=== PATIENT | male | born 1980 | race Caucasian/White ===

== ENCOUNTER 2022-05-01 18:49 | Emergency (ER) | payer MEDICAID, SELFPAY ==
[2022-05-01 19:00] VITALS: PULSE 97; RESP 16; TEMP 37.1; O2SAT 95
--- NOTE | 2022-05-01 19:59 | W.ED.GENADLT ---
HPI - General Adult General: Chief complaint: General Medical Stated complaint: insomnia, can't eat Time Seen by Provider: 05/01/22 19:24 Source: patient and family (Father) Mode of arrival: ambulatory Limitations: no limitations History of Present Illness: This patient presents to the emergency department because of inability to fall asleep for the last at least 3 days. He is accompanied by his father who collaborates the story. Patient states he is under no certain of why he cannot fall asleep but he seems to not be able to fall asleep for the last 3 nights and despite lack of sleep does not seem to be particularly tired during the day following. He states he does drink Dr. Pepper but otherwise denies any caffeinated beverages. He denies any street drugs, energy drinks or other stimulants. He rarely drinks alcohol. No street drugs. He states he has had occasional episodes in the past when he was working varying shifts but he is not currently employed so that is not a factor. He denies any history of thyroid dysfunction. He denies any periods of radha or other mental illness in the past. His father reports that and collaborates that he has not had a history of mental illness. He states that he has observed his son pacing the floor for the last couple of nights in addition seems to be having some loosening of associations since he has not slept. He states again to reiterate that this is not his usual mental state. No recent illness to include fever cough cold nausea vomiting diarrhea etc. Father reports that he is fine and there is no one else living in the home currently. Patient specifically denies any thoughts of self-harm, visual or auditory hallucinations etc. Associated symptoms: Deny chest pain, dyspnea, headache(s), nausea, rash, palpitations, syncope or vomiting Review of Systems Const: Denies: fever(s), chills or change in appetite Eyes: Denies: change in vision ENMT: Denies: throat pain, odynophagia, nasal discharge or nasal obstruction Card: Denies: chest pain, palpitations, irregular heart rhythm, lightheadedness, syncope or pre-syncope Resp: Reports: non-productive cough; Denies: dyspnea or productive cough GI: Denies: abdominal pain, nausea, vomiting or diarrhea : Denies: difficulty urinating, dysuria or urinary frequency Musc: Denies: neck pain, back pain, extremity pain or extremity swelling Skin/Breast: Denies: rash Neuro: Denies: headache(s), numbness in extremities, weakness in extremities, dizziness or seizure-like activity Psych: Reports: sleeping less; Denies: anxiety, depression, mood swings, panic attacks, visual hallucinations, auditory hallucinations, suicidal ideation or homicidal ideation Endo: Denies: polydipsia, cold intolerance or excessive sweating Physical Exam Narrative: EXAM NARRATIVE: The patient appears to be in no acute distress. He makes good eye contact and answers questions appropriately although he does take a beat before he formulate an answer but they appear to be well thought out and accurate. He is cooperative. Const: COMMON NORMALS: no acute distress, patient oriented x3, healthy appearing and alert GENERAL APPEARANCE: cooperative and comfortable NUTRITIONAL APPEARANCE: overweight HENMT: COMMON NORMALS: normocephalic, atraumatic, Normal nasal mucous membranes and turbinates present and moist oral mucous membranes HEAD & SCALP: normocephalic and atraumatic NOSE: Normal nasal mucous membranes and turbinates present Eye: COMMON NORMALS: Equal, round and reactive pupils present, EOMs intact bilaterally and conjunctivae normal CONJUNCTIVA: Yes conjunctivae normal PUPIL: Yes Equal, round and reactive pupils present Neck/C-Spine: COMMON NORMALS: full ROM and no lymphadenopathy Chest: COMMONS NORMALS: normal inspection of the chest Resp: COMMON NORMALS: normal respiratory effort, No retractions, No use of accessory muscles and clear to auscultation bilaterally EFFORT & INSPECTION: Yes able to speak in complete sentences AUSCULTATION: clear to auscultation bilaterally Cardio: COMMON NORMALS: regular rate, regular rhythm, No murmurs present (Cardio) and Peripheral pulses 2+ throughout RATE: regular rate RHYTHM: regular rhythm PERIPHERAL PULSES: Peripheral pulses 2+ throughout GI: COMMON NORMALS: Normal to inspection, nondistended, normoactive bowel sounds present and Soft to palpation PALPATION: Yes Soft to palpation : COMMON NORMALS: Yes no CVA tenderness BLADDER/KIDNEY EXAM: Yes no CVA tenderness Back/Pelvis: COMMON NORMALS: no CVA tenderness, thoracic and lumbar spine normal to inspection, no thoracic nor lumbar tenderness and thoraco-lumbar ROM normal Extremity: COMMON NORMALS: normal to inspection, full ROM and no pedal edema Neuro: COMMON NORMALS: patient oriented x3, moves all extremities, no focal motor deficits, no sensory deficits noted and gait normal SENSORIUM/ORIENTATION: Yes alert Psych: COMMON NORMALS: mental status grossly normal, cooperative, speech normal, activity/motor behavior normal, denies hallucinations, denies homicidal ideation and denies suicidal ideation SPEECH: Yes normal speech, Yes slow and Yes soft THOUGHT CONTENT: Yes Normal thought content present Skin: COMMON NORMALS: no rashes or lesions noted and turgor normal GENERAL SKIN EXAM: no rashes or lesions noted and turgor normal Course Vital Signs: Vital signs: Vital Signs Temperature 98.8 F 05/01/22 19:00 Pulse Rate 97 05/01/22 19:00 Respiratory Rate 16 05/01/22 19:00 Pulse Oximetry 95 05/01/22 19:00 Oxygen Delivery Me thod 05/01/22 19:00 [facility] - General Adult Medical Decision Making This patient presents to the emergency department company by his father recent bout of sleep deprivation of uncertain etiology. No prior history of mental illness, street drug use, other potential risk factors for insomnia. Is a clinical picture and clinical exam does not suggest acute radha or other central mental illness at this time. Certainly does not have any evidence this evening of loosening of associations or psychosis. Some mild caffeine ingestion but otherwise no other potential trigger. His father who is with him collaborates all his history and states that he has not had any concerns about mental illness ever and certainly does not harbor that at this time. After discussion with the patient in detail with the father present we have decided to give him a brief trial of a short acting sleep aid to reset his sleep cycle. We further discussed that should despite sleep he not feel back to his normal state or have other concerning thoughts actions etc. he should return to this or the nearest emergency department. Both he and his father voiced understanding and agreed. Discharge Plan Discharge Patient Disposition: Home Clinical Impression: Insomnia Condition: Stable Prescriptions: New Ambien CR 6.25 mg tablet,ext release multiphase 6.25 mg PO BEDTIME Qty: 7 0RF Discharge Orders: Discharge ED (Routine); Ordered 05/01/22 Ordered By: Vance Anthony Referrals: Jordon Schofield MD [Family Provider] - 7-10 days Discharge Diet: Usual diet Discharge Activity: Increase activity as tolerated Patient Instructions: Insomnia (ED), Opioid Safety, Pain Management Activity Restrictions/Additional Instructions: As we discussed we have provided a prescription of a short-term medication to help induce your sleep until your sleep cycle is reset. Avoid using caffeinated beverages after dinnertime, do not use alcohol to induce sleep as it disrupts sleep as well. If despite the medication you develop worsening symptoms, hallucinations, other disturbing thoughts return to this or the nearest emergency department. Coding Level of Care Code ED [employer] for Emma Raphael
[2022-05-01 20:05] VITALS: BP 149/115; PULSE 91; RESP 16; O2SAT 98
--- NOTE | 2022-05-01 20:28 | PC.NURSE ---
Pt given Ambien 5mg to take home per MD order.
== END 2022-05-01 20:26 | disposition home or self-care (01) ==
PROVIDERS: Emergency Provider Emergency Medicine; Family Provider Family Medicine
DX: G47.00 Insomnia, unspecified (principal)
CPT/HCPCS: 99283

== ENCOUNTER 2022-05-02 19:54 | Inpatient (IN) | payer MEDICAID, SELFPAY ==
[2022-05-02 20:08] VITALS: RESP 18
[2022-05-02 20:14] VITALS: BP 166/115; PULSE 96; O2SAT 98
[2022-05-02 21:42] LABS: Add Urine Microscopic? NO; Charge for UA Resulting for Rev
[2022-05-02 21:43] LABS: Basophils % 0.3 %; Eosinophils # 0.3 10^3/uL (0.0-0.8); Hematocrit 52.7 % (42.0-52.0); Hemoglobin 18.2 g/dL (11.7-16.6); Lymphocytes # 2.8 10^3/uL (0.8-4.8); Mean Corpuscular HGB Conc 34.5 g/dL (30.0-36.0); Mean Corpuscular Hemoglobin 32.2 pg (28.0-34.0); Mean Corpuscular Volume 93.3 fl (80-94); Mean Platelet Volume 10.1 fL (7.4-10.4); Monocytes # 1.2 10^3/uL (0.2-0.9); Neutrophils # 8.94 10^3/uL (1.8-7.7); Neutrophils % 67.5 %; Nucleated Red Blood Cells % 0 %; Platelet Count 311 10^3/cmm (130-400); Red Blood Count 5.65 10^6/uL (4.1-5.3); Red Cell Distribution Width 11.9 % (12.1-15.1); White Blood Count 13.3 10^3/uL (4.0-10.0)
[2022-05-02 21:46] LABS: Bilirubin Urine Neg (Negative); Blood Urine Neg (Negative); Glucose Urine UA Norm (Normal); Ketones Urine 1+ (Negative); Leukocyte Esterase Urine Negative (Negative); Nitrate Urine Negative (Negative); Protein Urine Neg (Negative); Urine Appearance Clear (CLEAR); Urine Color Yellow (Yellow); Urobilinogen Urine Neg (Negative); pH Urine 5 (5-7)
[2022-05-02 21:54] LABS: Amphetamines Screen Urine Negative (Negative); Barbiturates Screen Urine Negative (Negative); Benzodiazepines Screen Urine Negative (Negative); Cocaine Screen Urine Negative (Negative); Opiate Screen Urine Negative (Negative); PCP Screen Urine Negative (Negative); THC Screen Urine Negative (Negative)
--- NOTE | 2022-05-02 21:57 | W.ED.PSYCHS ---
HPI - Psych General: Chief Complaint: Psychiatric Symptoms Stated Complaint: insomnia, can't eat Time Seen by Provider: 05/02/22 20:18 Source: patient and family History of Present Illness: 42-year-old male who was here last night. Evidently, this patient has not slept for the last 4 nights. His father is with him, and notes that the patient has been somewhat paranoid at home. He was given medication for insomnia last night, but would not take it. The patient reports visual hallucinations. He paces the floor at night, and leaves the home at different hours of the night walking. Father reports one other instance of this, which required a neuropsychiatric unit stay for 3 to 4 days in his past. MD complaint: altered mental status and other Onset (ago): day(s) Duration: constant History of same: Yes Relieving factors: none Exacerbating factors: none Associated symptoms: Reports auditory hallucinations, visual hallucinations, delusions and depression; Deny homicidal ideation or suicidal ideation Review of Systems Const: Denies: fever(s) ENMT: Denies: throat pain Card: Denies: chest pain or palpitations Resp: Denies: dyspnea, productive cough or non-productive cough GI: Denies: abdominal pain, vomiting or diarrhea Psych: Reports: depression, visual hallucinations and auditory hallucinations; Denies: suicidal ideation or homicidal ideation Physical Exam Const: COMMON NORMALS: alert GENERAL APPEARANCE: cooperative, anxious and appears older than stated age HENMT: COMMON NORMALS: normocephalic, atraumatic and Normal external nose present HEAD & SCALP: normocephalic and atraumatic FACE & SINUS: normal facial exam and face symmetric NOSE: Normal external nose present and Normal nares present Eye: COMMON NORMALS: Equal, round and reactive pupils present and EOMs intact bilaterally PUPIL: Yes Equal, round and reactive pupils present Neck/C-Spine: COMMON NORMALS: full ROM GENERAL: Yes trachea midline Chest: CHEST: Yes Symmetrical chest wall rise Resp: COMMON NORMALS: normal respiratory effort, No use of accessory muscles and clear to auscultation bilaterally AUSCULTATION: clear to auscultation bilaterally Cardio: COMMON NORMALS: regular rate and regular rhythm RATE: regular rate RHYTHM: regular rhythm GI: COMMON NORMALS: Normal to inspection, nondistended, normoactive bowel sounds present, Soft to palpation and non-tender PALPATION: Yes Soft to palpation Extremity: COMMON NORMALS: no pedal edema Neuro: SENSORIUM/ORIENTATION: Yes alert CRANIAL NERVES: Yes CN normal except as noted SPEECH: speech normal GAIT: Yes Normal gait present Psych: APPEARANCE: Yes unkempt ATTITUDE: Yes paranoid and Yes bizarre ACTIVITY/MOTOR BEHAVIOR: Yes psychomotor agitation and Yes fidgeting SPEECH: Yes soft MOOD & AFFECT: Yes depressed mood and Yes fearful THOUGHT PROCESS: Circumstantial thought process present and disorganized THOUGHT CONTENT: No Suicidality present, No Homicidality present, Yes delusions and Yes Hallucination(s) present ATTENTION/CONCENTRATION: Yes attention grossly impaired and Yes concentration grossly impaired MEMORY/COGNITION: Yes memory grossly intact and Yes cognition grossly intact INSIGHT: Limited insight present (Psych) JUDGEMENT: Limited judgement present (Psych) Skin: COMMON NORMALS: no rashes or lesions noted GENERAL SKIN EXAM: no rashes or lesions noted Face to Face: Restrn/Seclusion Events leading up to initiation: Demonstrating self-destructive behavior (cutting, hitting davis etc.) Evaluation of patient's immediate situation: Alert and oriented, No signs of psychological distress and Signs of psychological distress Patient reaction since intervention applied: De-escalation/no displays of violent/destructive behavior Recent labs reviewed: Yes Patient's current medical/behavioral condition: No new concerns since last ROS Need for restraint or seclusion is: Continued Attending notified: Attending completed assessment (retraint is chemical not physical. Pt medicated for aggitation) Course Vital Signs: Vital signs: Vital Signs Pulse Rate 96 05/02/22 20:14 Respiratory Rate 18 05/02/22 20:08 Blood Pressure 166/115 05/02/22 20:14 Pulse Oximetry 98 05/02/22 20:14 Oxygen Delivery Me thod 05/02/22 20:14 MDM - Psych Medical Decision Making White blood cell count mildly elevated at 13 with a normal differential. Hemoglobin is elevated at 18, polycythemia likely related to smoking. Urine drug screen is negative. Alcohol is negative. He has a mild elevation in bilirubin of 1.9. Laboratory otherwise not remarkable. This patient became somewhat agitated in his room. He kept trying to leave. He exhibits paranoid and bizarre behavior, will not take his medication at home. His father is quite concerned for his safety, as am I. At this point, he does not appear to have insight. He was offered medication, for agitation, and at first obliged, but then refused. At one point, he was pushing on the ER department doors trying to leave. His father is written affidavit over his concern for the patient's safety as well as his safety at home. I have done the same. He will be placed on a 96-hour hold. I spoke with her psychiatrist. He agrees to the admission. He is medically stable Lab Data 05/02/22 21:30 05/02/22 21: Laboratory Results WBC 13.3 10^3/uL (4.0-10.0) H 05/02/22 21: RBC 5.65 10^6/uL (4.1-5.3) H 05/02/22 21: Hgb 18.2 g/dL (11.7-16.6) H 05/02/22 21: Hct 52.7 % (42.0-52.0) H 05/02/22 21: MCV 93.3 fl (80-94) 05/02/22 21: MCH 32.2 pg (28.0-34.0) 05/02/22 21: MCHC 34.5 g/dL (30.0-36.0) 05/02/22 21: RDW 11.9 % (12.1-15.1) L 05/02/22 21: Plt Count 311 10^3/cmm (130-400) 05/02/22 21: MPV 10.1 fL (7.4-10.4) 05/02/22 21: Neut % (Auto) 67.5 % 05/02/22 21: Lymph % (Auto) 21.0 % 05/02/22 21: [place] % (Auto) 9.0 % 05/02/22 21: Eos % (Auto) 2.0 % 05/02/22 21: Baso % (Auto) 0.3 % 05/02/22: Neut # (Auto) 8.94 10^3/uL (1.8-7.7) H 05/02/22 21: Lymph # (Auto) 2.8 10^3/uL (0.8-4.8) 05/02/22 21:30 [place] # (Auto) 1.2 10^3/uL (0.2-0.9) H 05/02/22 21:30 Eos # (Auto) 0.3 10^3/uL (0.0-0.8) 05/02/22 21:30 Baso # (Auto) 0.0 10^3/uL (0.0-0.1) 05/02/22 21:30 Nucleated RBC % (auto) 0 % 05/02/22 21: Nucleated RBCs # 0.0 /100WBC 05/02/22 21:30 Sodium 135 mmol/L (136-145) L 05/02/22 21:30 Potassium 3.6 mmol/L (3.5-5.1) 05/02/22: Chloride 94 mmol/L (98-107) L 05/02/22 21: Carbon Dioxide 26 mmol/L (22-29) 05/02/22 21: Anion Gap 18.6 (5-19) 05/02/22: BUN 6 mg/dL (6-20) 05/02/22 21:30 Creatinine 0.8 mg/dL (0.7-1.2) 05/02/22 21:30 GFR Calculation 106.5 mL/min (90-130) 05/02/22 21: Glucose 108 mg/dL (65-115) 05/02/22 21: Calculated Osmolality 278 mOsm/kg (285-295) L 05/02/22: Calcium 10.0 mg/dL (8.5-10.5) 05/02/22: Total Bilirubin 1.9 mg/dL (0.15-1.2) H 05/02/22 21:30 AST 49 U/L (0-40) H 05/02/22 21:30 ALT 50 U/L (0-41) H 05/02/22 21:30 Alkaline Phosphatase 60 U/L (40-130) 05/02/22 21: Total Protein 8.1 g/dL (6.6-8.7) 05/02/22 21: Albumin 5.0 g/dL (3.5-5.2) 05/02/22: Globulin 3.1 g/dL (1.3-4.6) 05/02/22 21:30 TSH 1.28 uIU/mL (0.27-4.20) 05/02/22 21:30 Urine Color Yellow (Yellow) 05/02/22 21: Urine Appearance Clear (CLEAR) 05/02/22 21: Urine pH 5 (5-7) 05/02/22 21: Ur Specific [place] 1.010 (1.005-1.030) 05/02/22 21: Urine Protein Neg (Negative) 05/02/22 21: Urine Glucose (UA) Norm (Normal) 05/02/22 21: Urine Ketones 1+ (Negative) H 05/02/22: Urine Blood Neg (Negative) 05/02/22: Urine Nitrate Negative (Negative) 05/02/22: Urine Bilirubin Neg (Negative) 05/02/22 21: Urine Urobilinogen Neg mg/dL (Negative) 05/02/22: Ur Leukocyte Esterase Negative (Negative) 05/02/22: Salicylates < 0.3 mg/dL (3-10) L 05/02/22 21:30 Urine Opiates Screen Negative ng/mL (Negative) 05/02/22: Acetaminophen < 5.0 ug/mL (10-30) L 05/02/22 21:30 Ur Barbiturates Screen Negative ng/mL (Negative) 05/02/22 21: Ur Phencyclidine Scrn Negative ng/mL (Negative) 05/02/22 21: Ur Amphetamines Screen Negative ng/mL (Negative) 05/02/22: U Benzodiazepines Scrn Negative ng/mL (Negative) 05/02/22 21: Urine Cocaine Screen Negative ng/mL (Negative) 05/02/22: U Marijuana (THC) Screen Negative ng/mL (Negative) 05/02/22: Ethyl Alcohol < 10 mg/dL (0-10) 05/02/22 21: Discharge Plan Discharge Patient Disposition: Admitted As Inpatient Admit Provider: Juan Eaton Clinical Impression: Acute psychosis Condition: Stable Coding Level of Care Code ED Endoscopy Registered Nurse for Emma Raphael
[2022-05-02 22:11] LABS: Alanine Aminotransferase 50 U/L (0-41); Alkaline Phosphatase 60 U/L (40-130); Anion Gap 18.6 (5-19); Aspartate Amino Transferase 49 U/L (0-40); Blood Urea Nitrogen 6 mg/dL (6-20); Carbon Dioxide 26 mmol/L (22-29); Chloride 94 mmol/L (98-107); Globulin 3.1 g/dL (1.3-4.6); Glomerular Filtration Rate 106.5 mL/min (90-130); Glucose 108 mg/dL (65-115); Osmolality Calculated 278 mOsm/kg (285-295); Potassium 3.6 mmol/L (3.5-5.1); Sodium 135 mmol/L (136-145); Thyroid Stimulating Hormone 1.28 uIU/mL (0.27-4.20); Total Bilirubin 1.9 mg/dL (0.15-1.2); Total Protein 8.1 g/dL (6.6-8.7)
[2022-05-02 22:20] LABS: Acetaminophen < 5.0 ug/mL (10-30); Alcohol Level < 10 mg/dL (0-10); Salicylate < 0.3 mg/dL (3-10)
--- NOTE | 2022-05-02 23:15 | PC.NURSE ---
client service supervisor, RN, and security at bedside for 96 hour hold paperwork and read rights to patient.
[2022-05-02] MEDS: ziprasidone 20 mg/mL SDV IM (23:26)
[2022-05-02] MEDS: LORazepam 2 mg/mL INJ 1 mL IM (23:26)
[2022-05-03 00:23] VITALS: BP 127/86; PULSE 121; RESP 18; TEMP 36.7; O2SAT 97
--- NOTE | 2022-05-03 00:58 | PC.ADMIT ---
[address] Admission Note: The patient,Tobin Morley,42 y/o, was given written information regarding hospital policies, unit procedures and contact persons. Patient's smoking status: . Vital Signs - 8 hr 05/02/22 20:08 05/02/22 20:14 05/03/22 00:23 Temperature 98.1 F Pulse Rate 96 121 H Respiratory Rate 18 18 Blood Pressure 166/115 127/86 Pulse Oximetry 98 97 Oxygen Delivery Method Room Air Room Air Room Air 05/03/22 00:48 Temperature Pulse Rate Respiratory Rate Blood Pressure Pulse Oximetry Oxygen Delivery Method Room Air PT ADMITTED FROM ER AT 0020 ON 05/03/2022. PT IS SEDATED AND IT IS DIFFICULT TO COMPLETE ASSESSMENT. PT DENIES SI/HI AND AVH AT THIS TIME. RELIEF DOCKING MASTER DID REPORT THAT PT HAS NOT SLEPT IN 4-5 DAYS AND WAS SEEN IN THE ER YESTERDAY FOR INSOMNIA. PT WAS GIVEN AMBIEN CR 6.25MG TO TAKE AT HS. PT PRESENTED IN ER TODAY STATING HE COULD STILL NOT SLEEP AND REPORTED HE DID NOT TAKE HIS AMBIEN DUE TO BEING PARANOID. RELIEF DOCKING MASTER REPORTED THAT PT WOULD WALK IN AND OUT OF ROOM STATING HE DID NOT KNOW WHAT WAS GOING ON. PT WAS PLACED ON A 96 HOUR HOLD THEN GIVEN ATIVAN PO, ATIVAN IM AND GEODON 20 MG IM WHILE IN THE THE ER. PT WAS BROUGHT TO THE NPU VIA WHEELCHAIR AND SECURITY. PT WAS ABLE TO ANSWER SIMPLE YES/NO QUESTIONS BUT THE INTERVIEW AND ASSESSMENT PROGRESSED PT BEGAN TO SLUMP OVER AND WAS OBVIOUSLY SLEEPING. PT SPEECH WAS MUMBLED AND AT TIMES UNCOMPREHENSABLE. PT WAS DRESSED OUT INTO SCRUBS AND SKIN ASSESSMENT COMPLETED. SKIN IS CLEAR AT THIS TIME. PT DID HAVE DIFFICULTY AMBULATING AND WAS ASSISTED TO BED WITH 2 STAFF ASSIST. PT WAS OFFERED SOMETHING TO EAT AND DRINK BUT REFUSED DUE TO BEING SEDATED. PT CURRENTLY RESTING IN BED WITH EYES CLOSED. ALL QUESTIONS ANSWERED AND SUPPORT VOICED.
[2022-05-03 03:09] VITALS: BMI 25.8
[2022-05-03] MEDS: guaiFENesin-dextromethorphan UDC 10 mL PO (04:39)
[2022-05-03 04:51] VITALS: BMI 25.8
[2022-05-03] MEDS: nicotine 2 mg Gum BUCCAL ×4 (05:05→13:52)
[2022-05-03] MEDS: nicotine 4 mg lozenge MUCOUS MEM (10:05)
[2022-05-03] MEDS: OLANZapine 5 mg ODT PO ×2 (13:13→21:45)
--- NOTE | 2022-05-03 13:27 | P.NPUHP_ITS ---
Providers/Chief Complaint Admitting Physician: Juan Eaton MD Chief Complaint: insomnia, can't eat HPI NPU History of Present Illness Tobin Morley is a 42 year old male who had presented to the emergency department last night after the patient's father had stated that the patient had been paranoid and had not slept at all for the past 4 nights. The patient's father had reported that the patient had been pacing the floor all night and had been leaving the house at night without any direction. The patient was admitted to the neuropsychiatric unit for further evaluation and treatment. The patient was unable to elaborate in any detail regarding why he was hospitalized. He reports that he is unsure where he is at this time and states that he does not remember why he was hospitalized. The patient reported simply that he had not been sleeping well. He had reported not hearing voices or seeing things at this time. He denied having depressed mood currently. He had minimized the use of illicit drugs or any alcohol recently. The patient had repeatedly stated that he had been without his contact lenses and was requesting that he be given contact lenses but appeared confused when asked if there was any family that could aid in his vision problems at this time. He was unable to elaborate regarding any pertinent information. Inpatient hospitalizations: Previous records had indicated 2 hospitalizations at [facility] for acute psychosis and 2010. Outpatient psychiatric history: Unknown at this time although patient had previously been diagnosed with both major depressive disorder with psychotic features as well as psychotic disorder NOS. Current medications: Ambien 6.25 mg at night Medical history: none reported, hx of GERD per previous record Surgical History: unknown Drug and Alcohol History: Per previous records from 2010, there is a history of alcohol abuse and reports of illicit drug use in the past. Legal history: Unknown Allergies: No known drug allergies Social history: Previous records report that the patient was born in [facility] to his biological parents. They had apparently when he was age 17. There reports that he had graduated from high school and reports that he has 1 child per previous records. He he was unable to corroborate any information regarding where he lived and who he lived with currently. He was unable to provide detail regarding his employment stating that he did a little bit of this and a little bit of that. Previous records had reported that the patient had stated having depression since the age of 15. There was no clear evidence of any learning problems per previous records. Family psychiatric history: History of depression noted on the maternal side of the family. Meds NPU Home Medications Medication Instructions Recorded Confirmed Last Taken Type zolpidem 6.25 mg tablet,extended 6.25 mg PO BEDTIME #7 tabs 05/01/22 05/03/22 Unknown Rx release,multiphase (Ambien CR) Allergies Allergy/AdvReac Type Severity Reaction Status Date / Time No Known Allergies Allergy Verified 05/03/22 01:17 Mental Status Exam MSE Comments: Patient was casually dressed white male who appeared to be pacing the hallway and somewhat intrusive as he had made attempts to enter into other patient's room initially and required redirection. He was awake and alert and did not appear excessively tired. His speech was regular in regards to rate with normal volume but some evidence of increased latency in speech when asked questions. His mood was described as okay. His affect appeared blunted and mood incongruent. His thought process appeared to perseverate regarding his need to be able to see but was not on linear as he repeatedly stated I do not know when asked details regarding his current existence. He appeared quite paranoid during the examination and at times did appear to be responding to internal stimuli although he minimized any auditory or visual hallucinations. He was alert and oriented to his name, the month, the year, the day of the week, but not purpose. He was unable to recall who the president was by name. His insight was impaired. His judgment is poor. His impulse control appeared poor. Vitals/I&O/Wt Last Vital Signs Temp 98.1 F 05/03/22 00:23 Pulse 121 H 05/03/22 00:23 Resp 18 05/03/22 00:23 BP 127/86 05/03/22 00:23 Pulse Ox 97 05/03/22 00:23 O2 Del Method 05/03/22 00:48 Weight last 48 hrs Weight 79.379 kg Weight 79.379 kg Data NPU 05/02/22 21:30 05/02/22 21:30 A&P Assessment and plan (1) Acute psychosis: Plan Patient is a 42-year-old white male with a previous history of a unspecified psychotic episode who again presents with increased confusion and decreased need for sleep. He will continue to require higher inpatient hospitalization involuntarily at this time. #1. Restart patient's medications. #2. We will attempt to gather collateral information. Patient currently is refusing any medications although he would like for it from an antipsychotic at this time. #3. Engage patient in individual milieu and group therapy. #4. Therapeutic observation 15-minute checks while on the unit. Involuntary Hold Information 96 Hour Hold: 96 Hour Involuntary Admission: Yes 96 Hour Hold Ending Date: 05/07/22 96 Hour Hold Ending Time: 22:43 Attestations NPU Medical Necessity Statement*: Patient will continue to require acute hospitalization on the neuropsychiatric unit which will be expected to exceed at least 2 midnights. The duration of his hospitalization will likely be 5 to 10 days. Coding Level of Care Code Acute Code for [facility] Fwd Diagnoses Acute psychosis F23
[2022-05-03 14:00] VITALS: BP 144/104; PULSE 87; RESP 17; TEMP 36.6; O2SAT 96
--- NOTE | 2022-05-03 15:21 | PC.NURSE ---
ripped off armband, refusing to wear armband currently
[2022-05-03] MEDS: haloperidol inj 5 mg/mL INJ 1 mL IM (16:22)
[2022-05-03] MEDS: diphenhydrAMINE 50 mg/mL SDV 1mL IM (16:22)
[2022-05-03] MEDS: LORazepam 2 mg/mL INJ 1 mL IM (16:22)
--- NOTE | 2022-05-03 16:24 | PC.NURSE ---
upon staff rounding, staff observed patient to be laying in his roommates bed, laying back to back with him in his bed. staff quickly intervened, asking patient to remove himself from the bed of his roommate, patient argumentative, saying to staff I asked him if I could lay back to back with him and he said that was okay staff educated patient of inappropriate behaviors, patient continues to be irritable with staff saying he will daphney us patient continued to lay in the bed of his roommate, so staff got the roommate (Gisella Elliott) to get up from the bed & go into the hallway. security called to unit, PRN medications given IM to patient Primo Morley, roommate moved to another room, verbal order given to close room, alerted physician, greenhouse or nursery transplanter, NPU manger as well about this incident
[2022-05-03] MEDS: zolpidem 5 mg Tablet 10 MG PO (21:42)
[2022-05-04] MEDS: nicotine 2 mg Gum BUCCAL ×3 (03:51→12:54)
[2022-05-04 04:41] VITALS: BP 141/90; PULSE 101; RESP 18; TEMP 36.4; O2SAT 95
--- NOTE | 2022-05-04 06:12 | PC.NURSE ---
Patient asked about glasses / contacts 5-6 times throughout the shift. Each time it was explained to him that we are going to call his father to see if he could bring contacts or glasses to the unit but not until 07:00 or so. He also asked why he was here 6-7 times each time the reason and how he got here was explained to him.
[2022-05-04] MEDS: nicotine 21 mg Patch 1 PATCH TRANSDERMA (08:20)
[2022-05-04 14:00] VITALS: BP 133/88; PULSE 105; RESP 18; TEMP 36.9; O2SAT 94
--- NOTE | 2022-05-04 15:49 | W.PM.NPUPNS ---
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 The patient had refused any as needed medications at this time. He had reported having some improved sleep after receiving the Zyprexa sublingual last night. He had continued to appear at times confused and anxious on the unit as he had expressed his distrust with others. He had minimized any ideas of thought insertion or thought broadcasting. He had reported that his father had apparently brought in his eyeglasses although he had reported that he had not received a visit from them. He remained somewhat unsure in regards to his current events that had led to him being hospitalized. He was initially unable to describe where he was and what kind of place or facility he was at at this time. The patient had required as needed medications last night for agitation including Haldol and olanzapine. Mental Status Exam MSE Comments: Patient was casually dressed white male who appeared to be pacing the hallway while asking many questions and appearing confused despite receiving answers to his questions.. He was awake and alert and did not appear excessively tired. His speech was regular in regards to rate with normal volume but some evidence of increased latency in speech when asked questions. His mood was described as okay. His affect appeared blunted and mood incongruent. His thought process appeared linear but superficial. He appeared quite paranoid during the examination and at times did appear to be responding to internal stimuli although he minimized any auditory or visual hallucinations. There was clear evidence of paranoia. He was alert and oriented to his name, the month, the year, the day of the week, but not purpose. His insight was impaired. His judgment is poor. His impulse control appeared poor. Vitals/I&O/Wt Last Vital Signs Temp 98.4 F 05/04/22 14:00 Pulse 105 H 05/04/22 14:00 Resp 18 05/04/22 14:00 BP 133/88 05/04/22 14:00 Pulse Ox 94 05/04/22 14:00 O2 Del Method 05/03/22 00:48 Weight last 48 hrs Weight 79.379 kg Weight 79.379 kg Data NPU 05/02/22 21:30 05/02/22 21:30 A&P Assessment and plan (1) Acute psychosis: Plan Patient is a 42-year-old white male with a previous history of a unspecified psychotic episode who again presents with increased confusion and decreased need for sleep. He will continue to require higher inpatient hospitalization involuntarily at this time. #1. Trial of Zyprexa Zydus 5mg at night tonight to target psychosis. #2. We will attempt to gather collateral information. #3. Engage patient in individual milieu and group therapy. #4. Therapeutic observation 15-minute checks while on the unit. Involuntary Hold Information 96 Hour Hold: 96 Hour Involuntary Admission: Yes 96 Hour Hold Ending Date: 05/07/22 96 Hour Hold Ending Time: 22:43 Attestations NPU Medical Necessity Statement*: Patient will continue to require acute hospitalization on the neuropsychiatric unit which will be expected to exceed at least 2 midnights. The duration of his hospitalization will likely be 5 to 10 days. Coding Level of Care Code Acute Code for [facility] Diagnoses Acute psychosis F23
[2022-05-04 19:50] VITALS: BP 132/94; PULSE 113; RESP 18; TEMP 37.2; O2SAT 94
[2022-05-04] MEDS: OLANZapine 5 mg ODT PO (20:31)
[2022-05-04] MEDS: pantoprazole DR 40 mg Tablet PO (22:02)
[2022-05-05] MEDS: nicotine 4 mg lozenge MUCOUS MEM ×4 (04:02→19:24)
[2022-05-05 06:00] VITALS: BP 141/97; PULSE 73; RESP 18; TEMP 37; O2SAT 95
[2022-05-05] MEDS: nicotine 2 mg Gum BUCCAL ×2 (07:55→18:05)
[2022-05-05] MEDS: pantoprazole DR 40 mg Tablet PO (07:55)
[2022-05-05 08:39] VITALS: BP 134/90; PULSE 75; RESP 18; TEMP 36.8; O2SAT 93
--- NOTE | 2022-05-05 15:19 | W.PM.NPUPNS ---
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 The patient had continued to appear confused on the mill you asking how many days he had been here in the hospital and where he was. He did report improved sleep. He had reported that he had not had visitors yet from his family. He had reported that he had not been working and had been living at home with his father but struggled with providing any further details. The patient had been eating and consuming fluids on the unit without any complication. He did not appear aggressive and did not require any as needed medications thus far today for agitation or anxiety. Mental Status Exam MSE Comments: Patient was casually dressed white male who was pacing the hallway. He continued to appear confused about the details and purpose of his stay here though he recognized the need for him to be here. He was alert and oriented to person place and time. His thought process was linear but superficial. He has remote memory appeared poor although his recent memory regarding his past few days remained poor. He appeared less guarded today. His speech at times appeared to show some increase in latency. There was no clear evidence of delusional thinking. He did appear at times distracted from his thoughts although he had denied any auditory or visual loose [place]. His insight is poor. His impulse control remains guarded. His judgment at this time is poor. His attention span appeared variable. Vitals/I&O/Wt Last Vital Signs Temp 98.2 F 05/05/22 08:39 Pulse 75 05/05/22 08:39 Resp 18 05/05/22 08:39 BP 134/90 05/05/22 08:39 Pulse Ox 93 05/05/22 08:39 O2 Del Method 05/03/22 00:48 Data NPU 05/02/22 21:30 05/02/22 21:30 A&P Assessment and plan (1) Acute psychosis: Plan Patient is a 42-year-old white male with a previous history of a unspecified psychotic episode who again presents with increased confusion and decreased need for sleep. He will continue to require higher inpatient hospitalization involuntarily at this time. #1. Continue zyprexa 5mg at night to target psychosis. #2. We will attempt to gather collateral information. #3. Engage patient in individual milieu and group therapy. #4. Therapeutic observation 15-minute checks while on the unit. Involuntary Hold Information 96 Hour Hold: 96 Hour Involuntary Admission: Yes 96 Hour Hold Ending Date: 05/07/22 96 Hour Hold Ending Time: 22:43 Attestations NPU Medical Necessity Statement*: Patient will continue to require acute hospitalization on the neuropsychiatric unit with likely length of stay of 5-10 days. Coding Level of Care Code Acute Code for [facility] Fwd Diagnoses Acute psychosis F23
[2022-05-05 16:42] VITALS: BP 131/89; PULSE 77; RESP 18; TEMP 36.6; O2SAT 96
[2022-05-05 20:02] VITALS: BP 131/90; PULSE 81; RESP 18; TEMP 36.9; O2SAT 96
[2022-05-05] MEDS: OLANZapine 5 mg ODT PO (20:08)
--- NOTE | 2022-05-06 01:20 | PC.NURSE ---
Patient appears paranoid and confused. Asked staff why he is being held against his will. Explained to patient that he is on a 96hr hold for his safety. Patient stated I'm ok. I don't know how you can violate by rights and keep me here. Patient started to quote bible versus and stated God knows he does not need to be here. Attempted to explain again that his father and the ED doctor were concerned about his safety. Patient continued to be frustrated and kept stating how he was being held against his will. PRN medication offered for anxiety but patient refused. Offered to sit with patient to talk but patient refused.
[2022-05-06 06:00] VITALS: BP 146/81; PULSE 87; RESP 18; TEMP 36.4; O2SAT 96
[2022-05-06] MEDS: nicotine 21 mg Patch 1 PATCH TRANSDERMA (08:28)
[2022-05-06] MEDS: pantoprazole DR 40 mg Tablet PO (08:29)
[2022-05-06 14:00] VITALS: BP 152/95; PULSE 77; RESP 18; TEMP 37.2; O2SAT 94
--- NOTE | 2022-05-06 16:28 | W.PM.NPUPNS ---
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 The patient had reported improved sleep. He reported that he felt much better and had a good visit with his father. He had acknowledged that in the past he had had periods of time where he felt like his mind was confused and prevented him from being able to concentrate. He had endorsed in the past having some paranoia and being distracted by noise inside of his head. He had reported that he had attempted to push through this and reported that he had stopped medications that may have been helpful in the past and it had led to a decline in his functioning. He had been polite and redirectable in the milieu. He reports that he has not followed up with help after his discharge in the past from hospitals. He reported having support from his father who he lives with and reports that he would like to continue to take the medication upon his discharge. Staff notes the patient had slept throughout the night. He had not endorsed any past history of radha other than reporting that he had not slept for several days. He was still unable to remember the details of what had led him into the hospital. Mental Status Exam MSE Comments: Patient was casually dressed white male who was pacing the hallway. He continued to appear confused about the details of his hospitalization but appeared to understand his need to be here today. He was alert and oriented to person place and time. His thought process was linear and goal directed today. His recent and remote memory appear grossly intact today. There was no evidence of paranoia. His speech was normal in regards to rate rhythm and prosody with less frequent periods of increased latency in speech. There was no clear evidence of delusional thinking. He did not appear to be responding to internal stimuli. His insight appeared to be improving. His impulse control remains guarded. His judgment at this time is improving as well. Vitals/I&O/Wt Last Vital Signs Temp 98.9 F 05/06/22 14:00 Pulse 77 05/06/22 14:00 Resp 18 05/06/22 14:00 BP 152/95 05/06/22 14:00 Pulse Ox 94 05/06/22 14:00 O2 Del Method 05/03/22 00:48 Data NPU 05/02/22 21:30 02/11/23 21:30 A&P Assessment and plan (1) Acute psychosis: Plan Patient is a 42-year-old white male with a previous history of a unspecified psychotic episode who again presents with increased confusion and decreased need for sleep. He will continue to require higher inpatient hospitalization involuntarily at this time. #1. Increase Zyprexa to 7.5 mg at night to target psychosis. #2. Referral for outpatient care needed. #3. Engage patient in individual milieu and group therapy. #4. Therapeutic observation 15-minute checks while on the unit. Involuntary Hold Information 96 Hour Hold: 96 Hour Involuntary Admission: Yes 96 Hour Hold Ending Date: 05/07/22 96 Hour Hold Ending Time: 22:43 Attestations NPU Medical Necessity Statement*: Patient will continue to require acute hospitalization on the neuropsychiatric unit with likely length of stay of 2-3 days. Coding Level of Care Code Acute Code for [facility] Fwd Diagnoses Acute psychosis F23
[2022-05-06] MEDS: blistex lip oint 7 gm Tube 1 APPLIC TOPICAL (19:31)
[2022-05-06] MEDS: OLANZapine 5 mg ODT 7.5 MG PO (20:28)
[2022-05-06 20:43] VITALS: BP 125/88; PULSE 110; RESP 18; TEMP 37.1; O2SAT 96
[2022-05-07] MEDS: pantoprazole DR 40 mg Tablet PO (08:31)
[2022-05-07] MEDS: nicotine 21 mg Patch 1 PATCH TRANSDERMA (08:33)
--- NOTE | 2022-05-07 11:59 | P.NPUDS_ITS ---
Diagnoses at Discharge Discharge Diagnosis (1) Acute psychosis: Status: Acute Reason for Visit Reason for Visit: insomnia, can't eat Brief History: History of Present Illness Tobin Morley is a 42 year old male who had presented to the emergency department last night after the patient's father had stated that the patient had been paranoid and had not slept at all for the past 4 nights.? The patient's father had reported that the patient had been pacing the floor all night and had been leaving the house at night without any direction.? The patient was admitted to the neuropsychiatric unit for further evaluation and treatment.? The patient was unable to elaborate in any detail regarding why he was hospitalized.? He reports that he is unsure where he is at this time and states that he does not remember why he was hospitalized.? The patient reported simply that he had not been sleeping well.? He had reported not hearing voices or seeing things at this time.? He denied having depressed mood currently.? He had minimized the use of illicit drugs or any alcohol recently.? The patient had repeatedly stated that he had been without his contact lenses and was requesting that he be given contact lenses but appeared confused when asked if there was any family that could aid in his vision problems at this time. He was unable to elaborate regarding any pertinent information. Inpatient hospitalizations: Previous records had indicated 2 hospitalizations at [facility] for acute psychosis and 2010. Outpatient psychiatric history: Unknown at this time although patient had previously been diagnosed with both major depressive disorder with psychotic features as well as psychotic disorder NOS. Current medications: Ambien 6.25 mg at night Medical history: none reported, hx of GERD per previous record Surgical History:? unknown Drug and Alcohol History: Per previous records from 2010, there is a history of alcohol abuse and reports of illicit drug use in the past. Legal history: Unknown Allergies: No known drug allergies Social history: Previous records report that the patient was born in [facility] to his biological parents.? They had apparently when he was age 17.? There reports that he had graduated from high school and reports that he has 1 child per previous records.? He he was unable to corroborate any information regarding where he lived and who he lived with currently.? He was unable to provide detail regarding his employment stating that he did a little bit of this and a little bit of that. Previous records had reported that the patient had stated having depression since the age of 15.? There was no clear evidence of any learning problems per previous records. Family psychiatric history: History of depression noted on the maternal side of the family. Hospital Course Hospital Course During the hospitalization, patient had routine laboratory studies which were within normal limits except for few outliers. Additionally there was a general medical evaluation which was also within normal limits and revealed no new acute processes. At the time of discharge, lethality was denied and psychosis was resolving. Mood and anxiety were well managed. Patient endorsed a plan to avoid all drugs of abuse and follow-up with the aftercare recommendations of the treatment team. Patient was evaluated and deemed to be absent credible lethality, and had achieved the maximum benefit from an inpatient hospitalization, so was discharged. Patient had shown substantial improvement on discharge, he had immediate improvement in regards to sleep and appeared to have less episodes of confusion with the initiation of Zyprexa and the titration up to 7.5mg upon discharge. He had alluded to having previous psychotic symptoms in the past and reported that the problems with feeling suspicious of others and hearing noises in his head had diminished substantially. He felt comfortable with follow-up on an outpatient basis while remaining on Zyprexa. Involuntary Hold Information 96 Hour Hold: 96 Hour Involuntary Admission: Yes 96 Hour Hold Ending Date: 05/07/22 96 Hour Hold Ending Time: 22:43 Mental Status Exam MSE Comments: Patient was casually dressed white male who was calm and cooperative on interview. He was alert and oriented to person place and time. His thought process was linear and goal directed today. His mood was described as good. His affect was brighter. His recent and remote memory appear grossly intact today. There was no evidence of paranoia. His speech was normal in regards to rate rhythm and prosody with no speech latency issues. There was no clear evidence of delusional thinking. He did not appear to be responding to internal stimuli. His insight appeared to be improving. His impulse control appear improved.. His judgment at this time is improving as well. Discharge Data Studies Completed and Pending: Laboratory Results WBC 13.3 10^3/uL (4.0 -10.0) H 05/02/22 21:30 RBC 5.65 10^6/uL (4.1 -5.3) H 05/02/22 21:30 Hgb 18.2 g/dL (11.7-1 6.6) H 05/02/22 21: Hct 52.7 % (42.0-52.0 ) H 05/02/22: MCV 93.3 fl (80-94) 05/02/22: MCH 32.2 pg (28.0-34. 0) 05/02/22: MCHC 34.5 g/dL (30.0-3 6.0) 05/02/22: RDW 11.9 % (12.1-15.1 ) L 05/02/22: Plt Count 311 10^3/cmm (130 -400) 05/02/22: MPV 10.1 fL (7.4-10.4 ) 05/02/22: Neut % (Auto) 67.5 % 05/02/22: Lymph % (Auto) 21.0 % 05/02/22: [place]t % (Auto) 9.0 % 05/02/22: Eos % (Auto) 2.0 % 05/02/22: Baso % (Auto) 0.3 % 05/02/22: Neut # (Auto) 8.94 10^3/uL (1.8 -7.7) H 05/02/22: Lymph # (Auto) 2.8 10^3/uL (0.8- 4.8) 05/02/22: [place] # (Auto) 1.2 10^3/uL (0.2- 0.9) H 05/02/22: Eos # (Auto) 0.3 10^3/uL (0.0- 0.8) 05/02/22: Baso # (Auto) 0.0 10^3/uL (0.0- 0.1) 05/02/22: Nucleated RBC % (a uto) 0 % 05/02/22 Nucleated RBCs # 0.0 /100WBC 05/02/22: Sodium 135 mmol/L (136-1 45) L 05/02/22: Potassium 3.6 mmol/L (3.5-5 .1) 05/02/22: Chloride 94 mmol/L (98-107 ) L 05/02/22: Carbon Dioxide 26 mmol/L (22-29) 05/02/22 21: Anion Gap 18.6 (5-19) 05/02/22: BUN 6 mg/dL (6-20) 05/02/22 21: Creatinine 0.8 mg/dL (0.7-1. 2) 05/02/22 21: GFR Calculation 106.5 mL/min (90- 130) 05/02/22: Glucose 108 mg/dL (65-115 ) 05/02/22: Calculated Osmolal ity 278 mOsm/kg (285- 295) L 05/02/22: Calcium 10.0 mg/dL (8.5-1 0.5) 05/02/22: Total Bilirubin 1.9 mg/dL (0.15-1 .2) H 05/02/22: AST 49 U/L (0-40) H 05/02/22: ALT 50 U/L (0-41) H 05/02/22: Alkaline Phosphata se 60 U/L (40-130) 05/02/22: Total Protein 8.1 g/dL (6.6-8.7 ) 05/02/22: Albumin 5.0 g/dL (3.5-5.2 ) 05/02/22: Globulin 3.1 g/dL (1.3-4.6 ) 05/02/22: TSH 1.28 uIU/mL (0.27 -4.20) 05/02/22: Urine Color Yellow (Yellow) 05/02/22: Urine Appearance Clear (CLEAR) 05/02/22: Urine pH 5 (5-7) 05/02/22: Ur Specific Gravit y 1.010 (1.005-1.0 30) 05/02/22 Urine Protein Neg (Negative) 05/02/22 Urine Glucose (UA) Norm (Normal) 05/02/22 Urine Ketones 1+ (Negative) H 05/02/22: Urine Blood Neg (Negative) 05/02/22 Urine Nitrate Negative (Negati ve) 02/11/23 21:23 Urine Bilirubin Neg (Negative) 05/02/22 21: Urine Urobilinogen Neg mg/dL (Negati ve) 05/02/22 21: Ur Leukocyte Monet ase Negative (Negati ve) 05/02/22 21: Salicylates < 0.3 mg/dL (3-10 ) L 05/02/22 21:30 Urine Opiates Scre en Negative ng/mL (N egative) 05/02/22 21: Acetaminophen < 5.0 ug/mL (10-3 0) L 05/02/22 21:30 Ur Barbiturates Sc reen Negative ng/mL (N egative) 05/02/22 21: Ur Phencyclidine S crn Negative ng/mL (N egative) 05/02/22 21: Ur Amphetamines Sc reen Negative ng/mL (N egative) 05/02/22 21: U Benzodiazepines Scrn Negative ng/mL (N egative) 05/02/22 21: Urine Cocaine Scre en Negative ng/mL (N egative) 05/02/22 21: U Marijuana (THC) Screen Negative ng/mL (N egative) 05/02/22 21: Ethyl Alcohol < 10 mg/dL (0-10) 05/02/22 21:30 Vitals: Last Vital Signs Temp 98.8 F 05/06/22 20:43 Pulse 110 H 05/06/22 20:43 Resp 18 05/06/22 20:43 BP 125/88 05/06/22 20:43 Pulse Ox 96 05/06/22 20:43 O2 Del Method 05/06/22 20:43 Discharge Plan Discharge Patient Disposition: Home Condition: Stable Prescriptions: New olanzapine 7.5 mg tablet 7.5 mg PO QPM Qty: 30 1RF Discontinued zolpidem [Ambien CR] 6.25 mg tablet,ext release multiphase 6.25 mg PO BEDTIME Qty: 7 0RF Discharge Orders: Discharge Order (Routine); Ordered 05/07/22 Ordered By: Beto Najera Referrals: [facility] [place] [facility] [Outside] - 05/14/22 11:30 am (Initial appointment. ) Discharge Diet: Usual diet Discharge Activity: Resume usual activity Patient Instructions: Olanzapine (By mouth), Insomnia, Opioid Safety Discharge Attestations NPU Time Spent in Discharge Care*: less than 30 min Specific Discharge Activities: Specific discharge activities: educating patient, discussing with renal case manager/social workers/dc planners, documenting/other paperwork and evaluating patient/reviewing data Coding Level of Care Code Acute Chg FW DC note Diagnoses Acute psychosis F23
[2022-05-07 12:08] VITALS: BP 125/88; PULSE 110; RESP 18; TEMP 37.1; O2SAT 96
== END 2022-05-07 12:34 | disposition home or self-care (01) | DRG 885 ==
LOC: ER 22:26 → NP 05-03 00:09
PROVIDERS: Admitting Provider Psychiatry & Neurology Psychiatry; Emergency Provider Emergency Medicine; Family Provider Family Medicine; Visit Provider Psychiatry & Neurology Psychiatry
DX: F23 Brief psychotic disorder (principal); F22 Delusional disorders
CPT/HCPCS: 80053; 80306; 80307; 81003; 84443; 85025; 96372; 97150; 97165; 99238; 99285; J1200; J1630; J2060; J3486

== ENCOUNTER → 2023-08-06 10:40 | Outpatient (BNVA) | payer MEDICAID, SELFPAY | PROVIDERS: Family Provider Family Medicine; PCP Nurse Practitioner Family; Referring Provider Nurse Practitioner Family; Visit Provider Physician Assistant | DX: M25.561 Pain in right knee (principal); F31.81 Bipolar II disorder; M25.361 Other instability, right knee; F10.20 Alcohol dependence, uncomplicated; F12.20 Cannabis dependence, uncomplicated | CPT/HCPCS: 73560; 73565; 80061; 83036 ==

== ENCOUNTER 2023-10-28 12:57 | Outpatient (CLI) | payer MEDICAID, SELFPAY ==
[2023-08-23 10:08] VITALS: BP 146/104; BMI 33.0
--- NOTE | 2023-10-28 13:00 | MR_ITS ---
WS: [id number] MRI RIGHT KNEE NONCONTRAST TECHNIQUE: Axial PD, coronal PD fat sat, coronal PD, sagittal PD, and sagittal PD fat-sat images obta ined. CLINICAL INFORMATION: Right knee patellar instablitity COMPARISON: None. FINDINGS: Distal quadriceps and patella tendons are intact. Hypertrophic patella. ACL and PCL are intact. Hilda l bone marrow signal in the distal femoral condyles and tibial plateau. Head the fibula is normal. Mo derate chondromalacia patella. This is advanced for a patient this age. No subchondral edema. Normal bone marrow signal in the femoral condyles and tibial plateau. Increased signal with small partial tear involving the medial patellar retinaculum. No visualized avu lsion. Small amount of associated edema in the medial patella facet. Shallow trochlea with mild later al subluxation of the patella. No contusion in the lateral femoral condyle. Medial and lateral meniscus are normal in appearance. MR/MR knee RT wo con* [id number] IMPRESSION: 1. Normal ACL and PCL. 2. Findings compatible with patellar instability described above. 3. Moderate chondromalacia patella grade 3 advanced for a patient this age. 4. Small intrasubstance tear involving the insertion of the medial patellar re tinaculum which otherwise appears intact with associated edema and slight subch ondral cystic change in the adjacent patella. 5. Mild lateral subluxation of the patella with shallow trochlear groove. Outbridge grading: grade III: partial-thickness cartilage loss with focal ulcer ation
== END 2023-10-28 12:58 | disposition home or self-care (01) ==
LOC: RAD 12:58
PROVIDERS: Family Provider Family Medicine; PCP Nurse Practitioner Family; Visit Provider Physician Assistant
DX: S83.241A Other tear of medial meniscus, current injury, right knee, initial encounter (principal); M79.4 Hypertrophy of (infrapatellar) fat pad; M22.41 Chondromalacia patellae, right knee
CPT/HCPCS: 73721

== ENCOUNTER 2024-02-23 07:16 | Day surgery (SDC) | payer MEDICAID, SELFPAY ==
[2023-08-23 10:08] VITALS: BP 146/104; BMI 33.0
[2024-02-23 07:42] VITALS: BP 138/108; PULSE 98; RESP 18; TEMP 36.7; O2SAT 95; BMI 34.0
[2024-02-23] MEDS: sodium chloride 0.9% 500 ML 15 ML IV (08:03)
--- NOTE | 2024-02-23 08:15 | ANES.PREANE2 ---
Pre-Anesthetic Assessment Height/Weight: Height 1.73 m Weight 101.605 kg Temp Pulse Resp BP Pulse Ox O2 Del Method 98.0 F 98 18 138/108 95 Room Air 02/23/24 07:42 02/23/24 07:42 02/23/24 07:42 02/23/24 07:42 02/23/24 07:42 02/23/24 07:42 Preop Diagnosis: screening/heartburn Operation Date: 02/23/24 08:15 Proposed Procedures p EGD 13943, 38513, G0105, L21.9, K92.2(Not Applicable) - Eliazar Fernandez DO s Colonoscopy(Not Applicable) - Eliazar Fernandez DO Familial anesthetic complications: none Was Beta Sophia taken within 24 hours: N/A Was Clonidine taken within 24 hours: N/A Last intake: Intake Last Liquid Date 02/22/24 Last Liquid Time 22:00 Last Solid Date 02/21/24 Last Solid Time 21:00 Social Tobacco and No alcohol 1 PPD pack(s) per day Exam alert, oriented x 3, clear to auscultation bilaterally and regular rate & rhythm Airway Submandibular: within normal limits Cervical ROM: within normal limits Mallampati: Class II Dentition: partials History/ROS No significant history except as noted and No significant complaints Pulmonary None reported Possible sleep apnea CV/HEM Hypertension None reported Hepatic None reported GI Gastroesophageal Reflux Disease Metabolic None reported Musc/skel None reported Neuropsych Anxiety Anesthetic Plan ASA status: 2 Anesthesia: MAC Risk of > 500 ml blood loss (7ml/kg in children): No Medications/Allergies Home Medications Medication Instructions Recorded Confirmed Last Taken Type Patella stabilizer unhinged right #1 ea 08/06/23 02/23/24 02/22/24 Rx knee bupropion HCl 300 mg 24 hr tablet, 300 mg PO QAM #30 tabs 12/29/23 02/23/24 02/22/24 Rx extended release (Wellbutrin XL) pantoprazole 40 mg tablet,delayed 40 mg PO BID 6 weeks #84 tabs 02/04/24 02/23/24 02/22/24 Rx release (Protonix) buspirone 15 mg tablet 15 mg PO BID 02/21/24 02/23/24 02/22/24 History quetiapine 100 mg tablet (Seroquel) 150 mg PO BEDTIME 02/21/24 02/23/24 02/22/24 History valsartan 80 mg tablet 80 mg PO DAILY 02/21/24 02/23/24 02/22/24 History Allergies Allergy/AdvReac Type Severity Reaction Status Date / Time No Known Allergies Allergy Verified 02/04/24 11:29 Current Medications Generic Name Dose Route Start Last Admin Trade Name Justinq PRN Reason Stop Dose Admin Sodium Chloride 500 mls @ 15 mls/hr 02/23/24 07:29 02/23/24 08:03 Sodium Chloride 0.9% IV 02/24/24 07:28 15 mls/hr .Q24H PRN Administration COLONOSCOPY FLUIDS PFSH Anesthesia Medical History Excessive daytime sleepiness Cannabis use disorder, severe, dependence Alcohol use disorder, severe, dependence Alcohol use disorder in remission Cannabis abuse, in remission On combination antipsychotic drug therapy Need for assessment for sleep apnea Bipolar 2 disorder Nicotine use disorder Psychiatric care Family History Father Heart disease Hypertension Social History Smoking and tobacco/nicotine status: current every day tobacco/nicotine user Alcohol intake: unknown Substance/Drug Use: never Adopted: No Caregiver/support person: No Lives independently: Yes Housing: House Marital status: Single Number of children: 1 Number of grandchildren: 0 Highest education level completed: Some College, No Degree service: No Current occupational status: unemployed Pets and animals: Yes Pets & animals: cat(s) and dog(s) Leisure activites: hunting and fishing Sexually active: No Do you think of yourself as: Straight/Heterosexual Current gender identity: Male Hannah/Confucianist: Caodaism Special hannah needs: No Agree to transfusion: Yes Data Anesthesia Cardiac Studies: No Data to Display
--- NOTE | 2024-02-23 08:40 | W.PM.OPSUD ---
Surgery/Procedure H&P Update DATE OF PROCEDURE: February 23, 2024 DATE H&P PERFORMED: 02/04/24 H&P UPDATE INFORMATION: I have reviewed H&P completed within last 30 days, I have examined patient prior to procedure and No changes to prior documentation PREOP DIAGNOSIS: screening/heartburn PLANNED PROCEDURE: Operation Date: 02/23/24 08:15 Proposed Procedures p EGD 66923, 25268, G0105, L21.9, K92.2(Not Applicable) - DO winnie Godfrey Colonoscopy(Not Applicable) - Eliazar Fernandez DO
[2024-02-23 09:13] VITALS: BP 155/110; PULSE 120; RESP 20; TEMP 36.5; O2SAT 94
[2024-02-23 09:14] VITALS: BP 145/103; PULSE 114; RESP 18; O2SAT 95
--- NOTE | 2024-02-23 09:40 | ANE.PACU2 ---
Inpatient post-anesthesia follow up: Airway intact: Yes Vital signs: Temperature 97.7 F Pulse Rate 114 Respiratory Rate 18 Blood Pressure 145/103 Pulse Oximetry 95 Oxygen Delivery Me thod Room Air Oxygen Flow Rate Fraction of Inspir ed Oxygen Hydration adequate: Yes Nausea and vomiting: No Pain level: 1 Mental status: Baseline
== END 2024-02-23 09:40 | disposition home or self-care (01) ==
PROVIDERS: Family Provider Family Medicine; PCP Nurse Practitioner Family; Visit Provider Surgery
PROC: 0DJ08ZZ Inspection of Upper Intestinal Tract, Via Natural or Artificial Opening Endoscopic (ICD-10-PCS; CPT 43235; principal; 2024-02-23 08:15)
PROC: 0DJD8ZZ Inspection of Lower Intestinal Tract, Via Natural or Artificial Opening Endoscopic (ICD-10-PCS; CPT 45378; 2024-02-23 08:15)
DX: Z12.11 Encounter for screening for malignant neoplasm of colon (principal); R12 Heartburn; D12.3 Benign neoplasm of transverse colon; K57.30 Diverticulosis of large intestine without perforation or abscess without bleeding; I10 Essential (primary) hypertension; K21.9 Gastro-esophageal reflux disease without esophagitis; F17.200 Nicotine dependence, unspecified, uncomplicated
CPT/HCPCS: 43239; 45385; 88305; J2704; J7040

== ENCOUNTER 2024-03-20 07:46 | Outpatient (CLI) | payer MEDICAID, SELFPAY ==
[2023-08-23 10:08] VITALS: BP 146/104; BMI 33.0
--- NOTE | 2024-03-20 08:00 | US_ITS ---
WS: [id number] RIGHT UPPER QUADRANT ULTRASOUND HISTORY: epigastric pain COMPARISON: None available. Liver: 17.4 cm in length. Liver is top normal size. Mild coarse echotexture throughout the liver from hepatic steatosis. Areas of fatty sparing. Portal Vein: Normal hepatopetal flow with monophasic waveform. Gallbladder: Normally distended gallbladder with no stones or wall thickening. CBD: 0.3 cm Pancreas: Completely obscured by bowel gas. Right kidney: 10.3 cm in length. Normal size and echogenicity. No hydronephrosis or mass. Aorta and IVC: Unremarkable abdominal aorta and IVC. No ascites. US/US gall bladder 06603 IMPRESSION: 1. Normal gallbladder. 2. Mild hepatic steatosis. Focal areas of fatty sparing within the liver. 3. Pancreas is not visualized.
== END 2024-03-20 07:47 | disposition home or self-care (01) ==
PROVIDERS: Family Provider Family Medicine; PCP Nurse Practitioner Family; Visit Provider Surgery
DX: R10.13 Epigastric pain (principal); R93.89 Abnormal findings on diagnostic imaging of other specified body structures
CPT/HCPCS: 76705